=== PATIENT | female | born 1950 | race Caucasian/White ===

== ENCOUNTER 2017-08-20 14:39 | Emergency (ER) | payer OTHER, MEDICARE ==
--- NOTE | 2017-08-20 14:52 | EDPHY ---
H & P Stated Complaint: lr upper leg swelling, seen in [place] last night given lovenox, no US Time Seen by Provider: 08/20/17 14:52 HPI/ROS: CHIEF COMPLAINT: Left leg pain and swelling HISTORY OF PRESENT ILLNESS: The patient presents the ED for evaluation of left leg pain and swelling. The patient's symptoms began within the past several days. She does have a history of a hamstring injury 3 weeks ago. She has had some tenderness along the medial aspect of her knee and left posterior calf. The patient denies any chest pain or shortness of breath. She denies prior history of PE or DVT. The patient denies cigarette use. The patient was seen at a emergency department in [place] yesterday. They were unable to perform an ultrasound like give the patient an injection of Lovenox. She presents to the ED today for definitive evaluation of possible DVT. REVIEW OF SYSTEMS: A comprehensive 10 point review of systems is otherwise negative aside from elements mentioned in the history of present illness. Source: Patient Exam Limitations: No limitations - Personal History Current Tetanus Diphtheria and Acellular Pertussis (TDAP): Yes - Medical/Surgical History Other PMH: total hysterectomy, back pain - Social History Smoking Status: Never smoked - Physical Exam Exam: General Appearance: Alert, no distress Eyes: Pupils equal and round no pallor or injection ENT, Mouth: Mucous membranes moist Respiratory: There are no retractions, lungs are clear to auscultation Cardiovascular: Regular rate and rhythm Gastrointestinal: Abdomen is soft and nontender, no masses, bowel sounds normal Neurological: 5/5 strength all 4 extremities Skin: Warm and dry, no rashes Musculoskeletal: Neck is supple nontender Extremities: Mild left calf tenderness, no asymmetry, 2+ dorsalis pedis posterior tibial pulse Constitutional: Initial Vital Signs Temperature (C) 36.6 C 08/20/17 14:42 Heart Rate 98 08/20/17 14:42 Respiratory Rate 16 08/20/17 14:42 Blood Pressure 130/95 H 08/20/17 14:42 O2 Sat (%) 90 L 08/20/17 14:42 O2 Delivery Mode Room Air Allergies/Adverse Reactions: No Known Allergies Allergy (Unverified 08/20/17 14:41) Home Medications: Medication Instructions Recorded Estradiol 08/20/17 Losartan Potassium 08/20/17 RESTORIL 08/20/17 SIMVASTATIN 08/20/17 Medical Decision Making - Diagnostics Imaging Results: Imaging Impressions Extremity Venous Study 08/20/17 15:04 Impression: No deep venous thrombosis in the left lower extremity. Findings discussed with Freedom Osullivan at 16:30 hour, 08/20/2017. ED Course/Re-evaluation: The patient presents to the emergency department for evaluation of left knee and calf pain. The patient's ultrasound demonstrates no evidence of a DVT. Her examination is consistent with a knee strain. The patient will be advised to repeat the ultrasound in 2 weeks for any ongoing calf pain. She is discharged home with customary aftercare instructions and return precautions. Departure - Departure Disposition: Home, Routine, Self-Care Clinical Impression: Strain of left knee Condition: Good Instructions: Knee Pain (ED) Additional Instructions: Your ultrasound demonstrates no evidence of a DVT. Take Ibuprofen or Motrin 600 mg by mouth three times a day. Repeat ultrasound in the 2 weeks for any ongoing symptoms to exclude the development of a DVT. Return to the ED for any worsening pain or other concerns. Referrals: Kunal HACKETT [Other] - As per Instructions
[2017-08-20 17:04] VITALS: BP 136/76
== END 2017-08-20 17:03 | disposition home or self-care (01) ==
DX: S86.912A Strain of unspecified muscle(s) and tendon(s) at lower leg level, left leg, initial encounter (principal); X58.XXXA Exposure to other specified factors, initial encounter